=== PATIENT | female | born 1985 | race Caucasian/White ===

== ENCOUNTER 2016-12-05 02:01 | Emergency (ER) | payer OTHER | END 2016-12-05 06:48 | disposition home or self-care (01) | LOC: ER1 02:01 | DX: L30.9 Dermatitis, unspecified (principal); K21.9 Gastro-esophageal reflux disease without esophagitis; F17.210 Nicotine dependence, cigarettes, uncomplicated; Z88.1 Allergy status to other antibiotic agents; Z79.899 Other long term (current) drug therapy | CPT/HCPCS: 99282; Q0163 ==

== ENCOUNTER 2021-01-23 14:35 | Emergency (ER) | payer OTHER ==
[~2021-01-23 14:35] MED LIST: BACTRIM DS TAB1 EACH PO; CYCLOBENZAPRINE10 MG PO
[2021-01-23] MEDS ORDERED: CELEBREX100 MG PO (15:20)
== END 2021-01-23 15:30 | disposition home or self-care (01) ==
LOC: ER1 14:35
DX: M25.531 Pain in right wrist (principal)
CPT/HCPCS: 73110; 99283

== ENCOUNTER 2021-12-20 17:38 | Emergency (ER) | payer OTHER ==
[~2021-12-20 17:38] MED LIST changes: +CELEBREX100 MG PO
[2021-12-20 18:45] LABS: RED BLOOD COUNT 4.56 M/UL (4.00-5.10); WHITE BLOOD COUNT 12.1 K/UL (4.5-11.0)
[2021-12-20 20:01] LABS: BUN/CREATININE RATIO 18 (0-10)
[2021-12-20] MEDS ORDERED: IMODIUM CAP 2 MG2 MG PO (21:13)
[2021-12-20] MEDS ORDERED: ONDANSETRON ODT4 MG SL (21:13)
== END 2021-12-20 21:38 | disposition home or self-care (01) ==
LOC: ER1 17:38
PROVIDERS: Physician Assistant
DX: R10.11 Right upper quadrant pain (principal); R11.2 Nausea with vomiting, unspecified; R19.7 Diarrhea, unspecified; E86.0 Dehydration; K21.9 Gastro-esophageal reflux disease without esophagitis; E78.5 Hyperlipidemia, unspecified; Z88.1 Allergy status to other antibiotic agents
CPT/HCPCS: 80053; 81001; 83690; 84703; 85025; 93005; 96374; 96375; 99284; J1885; J2405; Q9967

== ENCOUNTER → 2022-02-08 | Outpatient (CLI) | payer OTHER ==
[~2022-02-08] MED LIST changes: +IMODIUM CAP 2 MG2 MG PO; +ONDANSETRON ODT4 MG SL
[2022-02-09 09:14] LABS: THYROXINE (T4) 10.2 ug/dL (4.5-12.0)
== END ==
LOC: LAB 14:28
PROVIDERS: Internal Medicine Gastroenterology
DX: R19.7 Diarrhea, unspecified (principal)
CPT/HCPCS: 36415; 83993; 84436; 84443; 84480

== ENCOUNTER → 2022-02-21 | Outpatient (CLI) | payer OTHER ==
[2022-02-22 18:11] LABS: ENDOMYSIAL ANTIBODY IGA Negative (Negative); IMMUNOGLOBULIN A, QN, SERUM 239 mg/dL (87-352); T-TRANSGLUTAMINASE (TTG) IGA <2 U/mL (0-3)
== END ==
LOC: LAB 14:33
PROVIDERS: Internal Medicine Gastroenterology
DX: R19.7 Diarrhea, unspecified (principal)
CPT/HCPCS: 36415; 82784

== ENCOUNTER → 2022-03-19 | Outpatient (CLI) | payer OTHER | LOC: US 09:55 | DX: R10.30 Lower abdominal pain, unspecified (principal); K76.0 Fatty (change of) liver, not elsewhere classified; K76.89 Other specified diseases of liver | CPT/HCPCS: 76700 ==